=== PATIENT | female | born 1970 | race Caucasian/White ===

== ENCOUNTER 2017-09-23 07:46 | Emergency (ER) | payer MEDICAID ==
[~2017-09-23] VITALS: Ht 167.6 cm; Wt 81.6 kg
[~2017-09-23 07:46] MED LIST: TYL3 PO
[2017-09-23 07:59] VITALS: BP 143/87
--- NOTE | 2017-09-23 08:04 | NUR ---
PATIENT PRESENTS TO ED WITH vaginal pain x3 days . PT STATES . DENIES N/V/D; SKIN IS PINK/WARM/DRY; AAOX4 WITH EVEN AND STEADY GAIT; LUNGS CLEAR BL; HR EVEN AND REGULAR; PT DENIES ANY FEVER, CP, SOB, OR COUGH AT THIS TIME; PATIENT STATES PAIN OF 7/10 AT THIS TIME; VSS; PATIENT POSITIONED FOR COMFORT; HOB ELEVATED; BEDRAILS UP X2; BED DOWN. ER MD MADE AWARE OF PT STATUS.
[2017-09-23] MEDS ORDERED: KETOROLAC 60 MG/2 ML VIAL IM ONE (09:05)
--- NOTE | 2017-09-23 09:19 | NUR ---
MEDICATED FOR PAIN RELIEF---WILL CONTINUE TO OBSERVE FOR PAIN CONTROL AWAITS MD MOORE
--- NOTE | 2017-09-23 10:29 | NUR ---
STEPHEN PAYNE CHAPERONED ER MD DR. MERCHANT FOR FEMALE VAGINAL EXAM.
[2017-09-23] MEDS ORDERED: LIDOCAINE 1% ***ER ONLY *** 10 MG/ML VIAL INJ ONE (10:30)
--- NOTE | 2017-09-23 11:13 | NUR ---
[facility]ACE[facility] EMT Female Rn Float accompanied female patient for Pelvic Exam. I&D VAGINAL CYST
[2017-09-23 11:48] VITALS: BP 143/68
--- NOTE | 2017-09-23 11:49 | NUR ---
Patient discharged with v/s stable. Written and verbal after care instructions given and explained. Patient alert, oriented and verbalized understanding of instructions. Ambulatory with steady gait. All questions addressed prior to discharge. ID band removed. Patient advised to follow up with PMD. Rx of norco, motrin, keflex, and bactrim given. Patient educated on indication of medication including possible reaction and side effects. Opportunity to ask questions provided and answered.
== END 2017-09-23 11:49 | disposition home or self-care (01) ==
LOC: MED 07:46
DX: N75.0 Cyst of Bartholin's gland (principal); Z90.89 Acquired absence of other organs; Z79.899 Other long term (current) drug therapy
CPT/HCPCS: 56420; 81002; 81025; 99283; J1885; J2001

== ENCOUNTER 2017-09-26 16:24 | Emergency (ER) | payer MEDICAID ==
[~2017-09-26] VITALS: Ht 167.6 cm; Wt 81.6 kg
[2017-09-26 16:38] VITALS: BP 162/100
--- NOTE | 2017-09-26 16:46 | NUR ---
Patient to bed 07.
--- NOTE | 2017-09-26 16:54 | NUR ---
PATIENT PRESENTS TO ED WITH PT PRESENTS TO ER W/C/O VAGINAL PAIN X1 WEEK. HX BARTHOLIN'S CYST. PT STATES SHE WAS SEEN IN ER LAST NOC AND DOESN'T FEEL ANY BETTER AND WANTS THE CYST DRAINED. DENIES N/V/D; SKIN IS PINK/WARM/DRY; AAOX4 WITH EVEN AND STEADY GAIT; LUNGS CLEAR BL; HR EVEN AND REGULAR; PT DENIES ANY FEVER, CP, SOB, OR COUGH AT THIS TIME; PATIENT STATES PAIN OF 10/10 AT THIS TIME; VSS; PATIENT POSITIONED FOR COMFORT; HOB ELEVATED; BEDRAILS UP X2; BED DOWN. ER MD MADE AWARE OF PT STATUS.
[2017-09-26] MEDS ORDERED: LIDOCAINE/EPI 2% 1:100000 20 ML VIAL INJ ONE (17:13)
[2017-09-26] MEDS ORDERED: LIDOCAINE 1% ***ER ONLY *** 50 ML ONE (17:24)
--- NOTE | 2017-09-26 17:47 | NUR ---
STEPHEN PAYNE CHAPERONED ER MD DR. ROGEL FOR FEMALE VAGINAL EXAM.
[2017-09-26 18:18] VITALS: BP 145/96
== END 2017-09-26 18:18 | disposition home or self-care (01) ==
LOC: MED 16:24
DX: N75.0 Cyst of Bartholin's gland (principal); Z79.899 Other long term (current) drug therapy
CPT/HCPCS: 56420; 99283; J2001